=== PATIENT | female | born 1990 | race Caucasian/White ===

== ENCOUNTER 2022-10-29 16:40 | Emergency (ER) | payer BC, SELFPAY ==
[2022-10-29] VITALS (25 sets, daily range): BP systolic 99–129; BP diastolic 61–95; PULSE 90–106; RESP 12–16; TEMP 36.7; O2SAT 97–100
--- NOTE | ~2022-10-29 | CT_ITS ---
EXAMINATION: CT brain wo con DATE: 10/29/2022 19:12 INDICATION: Dizziness. TECHNIQUE: Computed tomography (CT) of the head was performed without intravenous contrast. The mA wa s adjusted according to patient size. Iterative reconstruction technique was employed. The dose-lengt h product was 605.33 mGy-cm. COMPARISON: None FINDINGS: There is no intracranial hemorrhage, acute infarction, or abnormal intracranial mass lesion . The ventricles are normal in size. The orbits are normal. The paranasal sinuses are clear. The mast oid air cells are normal. IMPRESSION: 1. Normal brain. Reviewed, dictated and finalized at location A. [employer] IMPRESSION: 1. Normal brain.
[2022-10-29 17:33] LABS: Basophils Absolute Auto 0.1 K/mm3 (0.0-0.1); Basophils Percent Auto 0.9 % (0.2-1.2); Eosinophils Absolute Auto 1.1 K/mm3 (0-0.3); Eosinophils Percent Auto 9.1 % (0-4.4); Hematocrit 28.4 % (37.0-47.0); Hemoglobin 8.2 g/dL (12.0-15.0); Immature Granulocyte Absolute 0.13 K/mm3 (0.00-0.031); Immature Granulocyte Percent A 1.1 % (0-0.5); Lymphocytes Absolute Auto 2.82 K/mm3 (0.9-3.2); Lymphocytes Percent Auto 23.6 % (18.3-44.2); Mean Corpuscular HGB Conc 28.9 g/dl (32-36); Mean Corpuscular Volume 79.6 fl (80-100); Mean Platelet Volume 8.7 fl (7.4-10.4); Neutrophils Absolute Auto 6.8 K/mm3 (1.3-6.7); Neutrophils Percent Auto 57.3 % (45.5-73.1); Platelet Count Result 480 k/mm3 (150-375); Red Blood Count 3.57 M/mm3 (4.2-5.4); Red Cell Distribution Width 14.7 % (11.5-14.5); White Blood Count 11.9 K/mm3 (4.5-10.0)
[2022-10-29 17:43] LABS: Hypochromasia 1+ (NORMAL); Ovalocytes 1+ (NORMAL); Platelet Estimate Increased (Adequate)
[2022-10-29 17:44] LABS: Alanine Aminotransferase 17 U/L (6-35); Albumin Level 3.6 g/dL (3.5-5.1); Alkaline Phosphatase 86 U/L (38-126); Anion Gap 7 mmol/L (8-16); Aspartate Amino Transferase 22 U/L (14-36); Bilirubin,Total 0.5 mg/dL (0.2-1.3); Blood Urea Nitrogen 4 mg/dL (7-17); Calcium 8.4 mg/dL (8.4-10.2); Carbon Dioxide 26 mmol/L (22-30); Chloride 107 mmol/L (98-107); Estimated CRCL calculation 107 ml/min; Estimated Glomerular Filt Rate > 60; Glucose 104 mg/dL (65-110); Lipase 349 U/L (23-300); Potassium 3.8 mmol/L (3.4-5.0); Schistocytes None Seen (NORMAL); Sodium 140 mmol/L (137-145)
[2022-10-29 17:47] LABS: Appearance Urine Clear (Clear); Bilirubin Urine Negative (Negative); Blood Urine Negative (Negative); Color Urine Yellow (Yellow); Glucose Urine UA Negative (Negative); Ketones Urine Negative (Negative); Leukocyte Esterase Ur Negative LEU/UL (Negative); Nitrate Urine Negative (Negative); Protein Urine Negative (Negative); Specific Grav Ur 1.025 (1.001-1.035); Urobilinogen Urine 0.2 mg/dL (<2.0)
[2022-10-29 17:56] LABS: Bacteria Urine Trace /hpf; Mucus Urine Rare /lpf; Squamous Epithelial Cell Urine Rare /hpf (Few)
[2022-10-29 17:59] LABS: Add Urine Microscopic? NO
--- NOTE | 2022-10-29 18:32 | ED.DIZZY ---
HPI - Dizziness General Chief Complaint: Dizziness Stated Complaint: DIZZINESS Time Seen by Provider: 10/29/22 18:14 Source: patient Mode of arrival: ambulatory Limitations: no limitations History of Present Illness HPI Narrative: Patient is 32 years old white female came to the emergency room by private car complaining of intermittent dizziness. Comes with head movement or body movement, associated with nausea and vomiting. Currently have no dizziness. Patient reports cold-like symptoms including nasal congestion, postnasal discharge, sore throat for the last few days. History of ulcerative colitis and anemia, her hemoglobin 5 days ago was 8.8. Patient on iron supplement. Patient reports the dizziness spells comes and lasts for few seconds, minutes or hours. Gets better with remaining still. Patient was started on azathioprine Related Data Home Medications Medication Instructions Recorded Confirmed azathioprine 50 mg tablet 50 mg PO BID 10/29/22 balsalazide 750 mg capsule 2,250 mg PO TID 10/29/22 ferrous sulfate 325 mg (65 mg mg 10/29/22 iron) tablet (FeroSul) Allergies Allergy/AdvReac Type Severity Reaction Status Date / Time sertraline [From Zoloft] Allergy Other Verified 10/29/22 19:41 Sulfa (Sulfonamide Allergy Hives Verified 10/29/22 19:41 Antibiotics) aripiprazole [From Abilify] AdvReac Depression Verified 10/29/22 19:41 Review of Systems Review of Systems: All systems reviewed & are unremarkable except as noted in HPI and below Exam Narrative: General appearance: Well-developed, well-nourished Skin: Normal color Head: Normocephalic, nontraumatic Eyes: Clear conjunctiva ENT: Oropharynx normal, ears normal, nose normal Neck: Supple, nontender Chest and respiratory: Airway patent, no respiratory distress, no accessory muscle use Heart: Regular rate/rhythm Abdomen: Soft, slight tenderness left lower quadrant, no organomegaly, quiet bowel sounds, rectal exam showed no gross blood, guaiac negative Vascular: Normal peripheral pulses, normal capillary refill. Musculoskeletal: Normal range of motion, nontender back Neurologic: Alert and oriented ?3, TEAROOM HOST is normal as tested, no gross motor deficit Course Vital Signs Vital signs: Vital Signs Temperature 36.7 C 10/29/22 17:03 Pulse Rate 93 10/29/22 17:03 Respiratory Rate 16 10/29/22 17:03 Blood Pressure 129/61 10/29/22 17:03 Pulse Oximetry 99 10/29/22 17:03 Oxygen Delivery Room Air 10/29/22 17:03 Temperature 36.7 C 10/29/22 17:03 Pulse Rate 93 10/29/22 17:03 Respiratory Rate 16 10/29/22 17:03 Blood Pressure 129/61 10/29/22 17:03 Pulse Oximetry 99 10/29/22 17:03 Oxygen Delivery Room Air 10/29/22 17:03 MDM - Dizziness MDM Narrative Medical decision making narrative: Patient presents with intermittent dizziness, mainly when she moves her head or body, spinning, associated with nausea and vomiting for the last few days, currently is asymptomatic. Patient drove herself to the emergency room History of ulcerative colitis, Physical examination showed no significant abnormalities. Differential diagnosis includes orthostatic hypotension, benign positional vertigo, intracranial abnormalities, electrolyte imbalance, anemia at this time, urinary tract infection. Patient's labs, UA, chest x-ray, CT head ordered. Blood work-up showed leukocytosis at 11.9, platelet of 480, patient on prednisone for ulcerative colitis. CT head showed no acute abnormalities. Swab for flu, COVID and RSV showed no abnormalities Patient was feeling okay at the time of discharge, the pt was discharged to home.the pt,s condition upon discharge was fair,educa
--- NOTE | 2022-10-29 18:38 | ECG_ITS ---
Measurements Intervals [place] Rate: 90 P: 37 SD: 138 QRS: 58 QRSD: 100 T: 10 QT: 366 QTc: 448 Interpretive Statements SINUS RHYTHM MINIMAL Q WAVES- INFERIOR LEADS BORDERLINE ECG NO PREVIOUS ECG AVAILABLE FOR COMPARISON Electronically Signed On 10-29-2022 20:33:27 AIR SAMPLER by Ashu Easley D.O.
[2022-10-29 19:18] LABS: Influenza A QL RT-PCR Negative (Negative); Influenza B QL RT-PCR Negative (Negative); RSV RNA, RT-PCR Negative (Negative); SARS-CoV-2 RNA PCR Negative
--- NOTE | 2022-10-29 19:36 | PC.NURSE ---
Report received from TONE Salomon. Assumed care of patient at this time.
== END 2022-10-29 21:04 | disposition home or self-care (01) ==
PROVIDERS: Emergency Medicine; Emergency Provider Emergency Medicine; PCP Internal Medicine Infectious Disease
DX: R42 Dizziness and giddiness (principal); Z20.822 Contact with and (suspected) exposure to COVID-19
CPT/HCPCS: 36415; 70450; 80053; 81003; 83690; 85025; 87637; 93005; 99284

== ENCOUNTER 2022-12-04 16:20 | Emergency (ER) | payer BC, SELFPAY ==
[2022-12-04 16:32] VITALS: BP 117/75; PULSE 77; RESP 20; TEMP 36.9; O2SAT 99
--- NOTE | 2022-12-04 16:36 | ED.FEMALEGU ---
HPI - Female Genitourinary General Chief complaint: Urogenital-Female Stated complaint: possible uti Time Seen by Provider: 12/04/22 16:36 History of Present Illness HPI Narrative: PATIENT PRESENTS WITH BURNING WITH URINATION. NO PELVIC PAIN NO ABDOMINAL PAIN NO GROSS HEMATURIA AND NO CONCERN FOR STI Related Data Home Medications Medication Instructions Recorded Confirmed azathioprine 50 mg tablet 50 mg PO BID 10/29/22 12/04/22 balsalazide 750 mg capsule 2,250 mg PO TID 10/29/22 12/04/22 ferrous sulfate 325 mg (65 mg 325 mg PO DIRECTED 10/29/22 12/04/22 iron) tablet (FeroSul) Allergies Allergy/AdvReac Type Severity Reaction Status Date / Time sertraline [From Zoloft] Allergy Other Verified 12/04/22 16:45 Sulfa (Sulfonamide Allergy Hives Verified 12/04/22 16:45 Antibiotics) aripiprazole [From Abilify] AdvReac Depression Verified 12/04/22 16:45 Review of Systems Review of Systems: CONSTITUTIONAL: DENIES FEVER, CHILLS, OR SWEATS. EYES: DENIES VISUAL CHANGES, REDNESS, OR DISCHARGE. ENT: DENIES RHINORRHEA, CONGESTION, SORE THROAT, OR OTALGIA. CARDIOVASCULAR: DENIES CHEST PAIN, PALPITATIONS, OR EDEMA. RESPIRATORY: DENIES COUGH OR DYSPNEA. GASTROINTESTINAL: DENIES ABDOMINAL PAIN, NAUSEA, VOMITING, OR DIARRHEA. GENITOURINARY: DENIES DYSURIA OR HEMATURIA. SKIN: DENIES RASH OR ITCHING. MUSCULOSKELETAL: DENIES BACK PAIN, JOINT PAIN, OR MYALGIA. NEUROLOGIC: DENIES HEADACHE, NUMBNESS, OR WEAKNESS. PSYCHIATRIC: DENIES ANXIETY OR DEPRESSION. PMFSH Comments AT TIME OF SIGNATURE, AGREE WITH NURSING PAST MEDICAL, SURGICAL, SOCIAL AND FAMILY HISTORY. THERE IS NO RELEVANT FAMILY HISTORY PERTINENT TO THE PRESENTING COMPLAINT Exam Narrative: GENERAL: WELL-APPEARING, WELL-NOURISHED, AND IN NO ACUTE DISTRESS. HEAD: NORMOCEPHALIC, ATRAUMATIC. EYES: PERRLA AND EOMI. ENT: NARES CLEAR, NO RHINORRHEA OR EPISTAXIS. MUCOUS MEMBRANES MOIST. NECK: SUPPLE. CHEST: CLEAR TO AUSCULTATION. NO RESPIRATORY DISTRESS. HEART: REGULAR RATE AND RHYTHM. NO MURMUR HEARD. NORMAL PERIPHERAL PULSES. ABDOMEN: SOFT, NONTENDER, NONDISTENDED, NORMAL ACTIVE BOWEL SOUNDS. EXTREMITIES: NORMAL RANGE OF MOTION. NO EDEMA. SKIN: WARM, DRY, NO RASH. NEURO: NO FOCAL DEFICITS. ALERT AND ORIENTED X3. ANA COMA SCALE EYE OPENING: SPONTANEOUS 4 ANA COMA SCALE MOTOR: OBEYS COMMANDS 6 ANA COMA SCALE VERBAL: ORIENTED 5 ANA COMA SCALE TOTAL 15 Course Course Level of Care: Express Care Visit Vital Signs Vital signs: Vital Signs Temperature 36.9 C 12/04/22 16:32 Pulse Rate 77 12/04/22 16:32 Respiratory Rate 20 12/04/22 16:32 Blood Pressure 117/75 12/04/22 16:32 Pulse Oximetry 99 12/04/22 16:32 Oxygen Delivery Room Air 12/04/22 16:32 Temperature 36.9 C 12/04/22 16:32 Pulse Rate 77 12/04/22 16:32 Respiratory Rate 20 12/04/22 16:32 Blood Pressure 117/75 12/04/22 16:32 Pulse Oximetry 99 12/04/22 16:32 Oxygen Delivery Room Air 12/04/22 16:32 WILL TREAT FOR UTI BASED ON SYMPTOMS WILL CULTURE URINE AND NOTIFY PATIENT IF ANTIBIOTIC NEEDS TO BE CHANGED OR DISCONTINUE MDM - Female Genitourinary Differential Diagnosis Differential diagnosis: Likely urinary tract infection, bacterial vaginosis, trichomoniasis, cervicitis, ovarian cyst, vaginitis, ruptured ovarian cyst, cyst of Bartholin's gland and cystitis Lab Data Labs: Urine Glucose Negative Reference Range: Negative Urine Bilirubin Negative Reference Range: Negative Urine Ketone Negative Reference Range: Negative Urine Specific [place] 1.030 Reference Range:1.001-1.035 Urine Blood 3+ Reference Ran
== END 2022-12-04 16:50 | disposition home or self-care (01) ==
PROVIDERS: Emergency Provider Nurse Practitioner Family; PCP Internal Medicine Infectious Disease
DX: N39.0 Urinary tract infection, site not specified (principal)
CPT/HCPCS: 81003; 87086; 87088; 99213; G0463

== ENCOUNTER 2022-12-25 17:46 | Emergency (ER) | payer BC, SELFPAY ==
--- NOTE | ~2022-12-25 | XR_ITS ---
EXAM: XR finger 1st LT min 2V DATE: 12/25/2022 18:14 HISTORY: smashing injury to fingernail . COMPARISON: None available. FINDINGS: Normal mineralization. No fracture or dislocation. No lytic or blastic lesion. Joint space s are maintained. No erosion or periosteal change. Soft tissues within normal limits. IMPRESSION: No acute osseous finding in the left thumb. Reviewed, dictated and finalized at location K.
[2022-12-25 17:52] VITALS: BP 125/74; PULSE 70; RESP 18; TEMP 37; O2SAT 98
--- NOTE | 2022-12-25 18:12 | ED.UPPEXIN ---
HPI - Extremity Injury (Upper) General Chief Complaint: Extremity Injury, Upper Stated Complaint: Thumb Injury Time Seen by Provider: 12/25/22 18:05 Source: patient, RN notes reviewed and old records reviewed Mode of arrival: ambulatory Limitations: no limitations History of Present Illness HPI narrative: 32 year old female presents to [facility] care with complaints of 200lb weight falling on her left thumb today and injuring her left thumb and nail. Patient has noted bruising to her left thumbnail and pain to thumb described as throbbing. Patient reports that she had some initial tingling and numbness feeling but that has resolved, is able to move thumb on own power, finger is pink and warm no obvious deformity noted. MD complaint: injury to: left and finger (thumb) Onset (ago): day(s) (today) Handedness: right Severity scale (1-10): 4 Treatments prior to arrival: other (none) Related Data Home Medications Medication Instructions Recorded Confirmed balsalazide 750 mg capsule 2,250 mg PO TID 10/29/22 12/25/22 Allergies Allergy/AdvReac Type Severity Reaction Status Date / Time sertraline [From Zoloft] Allergy Other Verified 12/25/22 18:41 Sulfa (Sulfonamide Allergy Hives Verified 12/25/22 18:41 Antibiotics) aripiprazole [From Abilify] AdvReac Depression Verified 12/25/22 18:41 Review of Systems Review of Systems: CONSTITUTIONAL: Denies fever, chills, or sweats. CARDIOVASCULAR: Denies chest pain, palpitations, or edema. RESPIRATORY: Denies cough or dyspnea. SKIN: Denies rash or itching. Denies lacerations or abrasions MUSCULOSKELETAL: Reports injury to left thumb and to left thumbnail NEUROLOGIC: Denies numbness, or weakness. All systems reviewed & are unremarkable except as noted in HPI and below PMFSH Past Medical History Medical History (Updated 12/27/22 @ 19:38 by Bridgette Jenkins NP) Pancreatitis Ulcerative colitis Social History Social History (Updated 12/27/22 @ 19:49 by Bridgette Jenkins NP) Smoking status: Never smoker Alcohol intake: current Alcohol use details: rare Substance use type: does not use Living arrangements: with family Gender identity (if verbalized by the patient): Female Comments At time of signature, agree with nursing past medical, surgical, social and family history. There is no relevant family history pertinent to the presenting complaint Exam Narrative: GENERAL: Well-appearing, well-nourished, and in no acute distress. HEAD: Normocephalic, atraumatic. EYES: PERRLA, conjunctivae clear NECK: Supple. CHEST: Speaks in full sentences. No respiratory distress.SAO2 98% on room air HEART: Regular rate and rhythm. Normal and equal peripheral pulses. EXTREMITIES:left thumb has normal strength and sensation, normal range of motion. No edema or ecchymosis. 5/5 strength with normal flexion and extension. Normal sensation with sensitivity to light touch and pain. No point tenderness.? ?No open wounds, no skin tenting, no devitalized tissue or atrophy, no trophic changes, no obvious deformity, alignment normal, nearby joints and structures intact. Distal pulses palpable and equal bilaterally, skin warm, dry, pink. Capillary refill less than 3 seconds. bruising of nail bed Course Course Level of Care: Express Care Visit Vital Signs Vital signs: Vital Signs Temperature 37.0 C 12/25/22 17:52 Pulse Rate 70 12/25/22 17:52 Respiratory Rate 18 12/25/22 17:52 Blood Pressure 125/74 12/25/22 17:52 Pulse Oximetry 98 12/25/22 17:52 Oxygen Delivery Room Air 12/25/22 17:52 Temperature 37.0 C 12/25/22 17:52 Pulse Rate 70 12/25/22 17:52 Respiratory Rate 18 12/25/22 17:52 Blood Pressure 125/74 12/25/22 17:52 Pulse Oximetry 98 12/25/22 17:52 Oxygen Delivery Room Air 12/25/22 17:52 reviewed Procedures Other Procedure Procedure 1: Other Procedure: 1827 Using cautery pen hole placed in bruised area of left thumb
== END 2022-12-25 18:15 | disposition home or self-care (01) ==
PROVIDERS: Emergency Provider Registered Nurse
DX: S60.112A Contusion of left thumb with damage to nail, initial encounter (principal); W22.8XXA Striking against or struck by other objects, initial encounter
CPT/HCPCS: 10140; 73140; 99213; G0463